=== PATIENT | male | born 1990 | race Caucasian/White ===

== ENCOUNTER 2022-03-25 10:27 | Emergency (ER) | payer SELFPAY ==
[~2022-03-25] VITALS: Ht 177 cm; Wt 115.0 kg
[2022-03-25 11:18] LABS: BILIRUBIN,URINE NEGATIVE (NEGATIVE); CLARITY,URINE CLEAR; COLOR,URINE YELLOW; GLUCOSE, URINE (UA) NEGATIVE (NEGATIVE); KETONES,URINE NEGATIVE (NEGATIVE); LEUKOCYTE ESTERASE ,URINE NEGATIVE (NEGATIVE); NITRITE,URINE NEGATIVE (NEGATIVE); PROTEIN,URINE NEGATIVE (NEGATIVE)
[2022-03-25 11:27] LABS: BACTERIA,URINE NEGATIVE /HPF
--- NOTE | 2022-03-25 12:06 | ED GU-Male ---
General Chief Complaint: - Reproductive Stated Complaint: GROIN PAIN Nursing Triage Note: ARRIVED VIA AMB TO ROOM 07 WITH RIGHT SIDED GROIN PAIN X1 WEEK. Source: patient Exam Limitations: no limitations (MEREDITH WASHINGTON APRN) History of Present Illness Date Seen by Provider: Mar 25, 2022 Time Seen by Provider: 11:45 Initial Comments Patient is a 31-year-old male who presents to the emergency department with onset of right groin pain approximately 1 week ago. Patient states the pain is intermittent and does sometimes radiate into his right testicle/scrotum. He states he also sometimes has urinary frequency but when he goes to the restroom he has difficulty initiating a stream. He states that other times he urinates without any issues at all. States it is sometimes painful to urinate but other times states he is able to urinate pain-free. Denies any penile discharge. Denies any bulge or swelling in the area of pain. States the pain is sometimes worse when he is lifting something. States he is pain-free at the time of my exam. He denies any swelling or redness to his scrotum. No abdominal pain. Has not been taking anything for the medicine other than smoking marijuana which she says does relieve the pain sometimes. Denies any history of similar symptoms. Timing/Duration: week Location: groin Radiation: scrotal Activities at Onset: none (MEREDITH WASHINGTON APRN) Allergies and Home Medications Allergies Coded Allergies: cefaclor (Verified Allergy, Unknown, 03/25/22) clarithromycin (Verified Allergy, Unknown, 03/25/22) Patient Home Medication List Home Medication List Reviewed: Yes (MEREDITH WASHINGTON APRN) Doxycycline Hyclate (Doxycycline Hyclate) 100 Mg Capsule, 100 MG PO BID Prescribed by: Meredith Washington on 03/25/22 1327 Ibuprofen (Ibuprofen) 800 Mg Tablet, 800 MG PO Q8H PRN for PAIN-MILD Prescribed by: Meredith Washington on 03/25/22 1327 Review of Systems Review of Systems Constitutional: no symptoms reported EENTM: no symptoms reported Respiratory: no symptoms reported Cardiovascular: no symptoms reported Gastrointestinal: see HPI Genitourinary: see HPI (MEREDITH WASHINGTON APRN) Past Dvlytpf-Syplrt-Swmqkn Hx Patient Social History Tobacco Use?: Yes Smoking Status: Current Everyday Smoker Substance use?: Yes Substance type: Marijuana Alcohol Use?: No (MEREDITH WASHINGTON APRN) Physical Exam Vital Signs Vital Signs - First Documented 03/25/22 10:40 Temp 36.3 Pulse 80 Resp 16 B/P (MAP) 141/96 (111) Pulse Ox 100 O2 Delivery Room Air (VALENCIA MACEDO MD) Vital Signs Capillary Refill : Less Than 3 Seconds (MEREDITH WASHINGTON APRN) Height, Weight, BMI Height: '" Weight: lbs. oz. kg; 36.00 BMI Method: General Appearance: WD/WN, no apparent distress HEENT: PERRL/EOMI, normal ENT inspection, TMs normal, pharynx normal Neck: non-tender, full range of motion, supple, normal inspection Cardiovascular: regular rate, rhythm Respiratory: chest non-tender, lungs clear, normal breath sounds, no respiratory distress, no accessory muscle use Gastrointestinal: normal bowel sounds, non tender, soft Male: normal genitalia; No inguinal tenderness, No testicular tenderness Back: normal inspection, no vertebral tenderness Extremities: normal range of motion, non-tender, normal inspection, no pedal edema, no calf tenderness Neurologic/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: 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, no motor/sensory deficits, alert, normal mood/affect, oriented x 3 Skin: normal color, warm/dry (MEREDITH WASHINGTON APRN) Progress/Results/Core Measures Suspected Sepsis SIRS Temperature: Pulse: 80 Respiratory Rate: 16 Blood Pressure 141 /96 Mean: 111 (MEREDITH WASHINGTON APRN) Results/Orders Lab Results Laboratory Tests Test 03/25/22 11:10 Range/Units Urine Color YELLOW Urine Clarity CLEAR Urine pH 6.0 5-9 Urine Specific Almond >=1.030 1.016-1.022 Urine Protein NEGATIVE NEGATIVE Urine Glucose (UA) NEGATIVE NEGATIVE Urine Ketones NEGATIVE NEGATIVE Urine Nitrite NEGATIVE NEGATIVE Urine Bilirubin NEGATIVE NEGATIVE Urine Urobilinogen 0.2 < = 1.0 MG/DL Urine Leukocyte Esterase NEGATIVE NEGATIVE Urine RBC (Auto) 1+ H NEGATIVE Urine RBC 2-5 H /HPF Urine WBC 2-5 /HPF Urine Squamous Epithelial Cells NONE /HPF Urine Crystals NONE /LPF Urine Bacteria NEGATIVE /HPF Urine Casts NONE /LPF Urine Mucus MODERATE H /LPF Urine Culture Indicated NO Urine Neisseria gonorrhoeae RNA Not Detected Not Detected (VALENCIA MACEDO MD) My Orders Orders - VALENCIA MACEDO MD Ua Culture If Indicated (03/25/22 10:50) (VALENCIA MACEDO MD) Vital Signs/I&O 03/25/22 03/25/22 10:40 13:52 Temp 36.3 Pulse 80 74 Resp 16 16 B/P (MAP) 141/96 (111) 116/68 Pulse Ox 100 98 O2 Delivery Room Air Room Air (VALENCIA MACEDO MD) Vital Signs/I&O Capillary Refill : Less Than 3 Seconds (MEREDITH WASHINGTON APRN) Blood Pressure Mean: 111 Progress Note : Progress Note Patient is nontoxic and well-hydrated on exam. No abdominal tenderness to palpation noted. Vital signs are reassuring. Exam of the inguinal region and scrotum are largely unremarkable. No erythema or swelling noted. Area is not markedly tender to palpation. Cremasteric reflex intact bilaterally. L aboratory evaluation is reassuring. Urinalysis reveals no evidence of infection. Ultrasound of the scrotum notable for likely right-sided epididymitis. This is a probable etiology of the patient's symptoms. Urine GC was obtained and patient was treated with 500 mg of Rocephin IM and was discharged home with a 10-day course of doxycycline. Recommended sexual abstinence until the course of doxycycline is completed. Patient states he is monogamous. States he has not had any penile discharge. Follow-up with PCP. Return precautions for urgent symptomology discussed. Patient verbalized understanding. (MEREDITH WASHINGTON APRN) Departure Impression Primary Impression: Right epididymitis Disposition: HOME, SELF-CARE Condition: Stable Departure-Patient Inst. Decision time for Depature: 13:25 (MEREDITH WASHINGTON APRN) Referrals: NO,LOCAL PHYSICIAN (PCP/Family) Primary Care Physician Patient Instructions: Epididymitis (DC) Scripts Ibuprofen (Ibuprofen) 800 Mg Tablet 800 MG PO Q8H PRN for PAIN-MILD for 7 Days, #21 TAB 0 Refills Prov: MEREDITH WASHINGTON APRN 03/25/22 Doxycycline Hyclate (Doxycycline Hyclate) 100 Mg Capsule 100 MG PO BID for 10 Days, #20 CAP 0 Refills Prov: MEREDITH WASHINGTON APRN 03/25/22 Work/School Note: Work Release Form Date Seen in the Emergency Department: Mar 25, 2022 Return to Work: Mar 27, 2022 ATTENDING PHYSICIAN NOTE: I was physically present as attending physician in the emergency department during the care of this patient, but I was not directly involved in the decision making or delivery of care for this patient. (VALENCIA MACEDO MD) MEREDITH WASHINGTON APRN Mar 25, 2022 12:06 VALENCIA MACEDO MD Mar 26, 2022 21:24
--- NOTE | 2022-03-25 12:44 | Diagnostic Imaging Report ---
PROCEDURE: US Scrotum w/ Duplex TECHNIQUE: Multiple realtime merida images were obtained of the scrotum in various projections bilaterally. Color Doppler images were also obtained. INDICATION: Right groin and testicle pain. COMPARISON: None. FINDINGS: The testicles are normal in size, shape and echogenicity. The right testis measures 4.6 x 2.7 x 3.1 cm. The left testis measures 4.4 x 2.6 x 3.2 cm. There is normal color flow Doppler signal of both testicles. No focal testicular mass is seen on either side. There is a heterogeneous appearance of the right epididymis with increased vascularity. The left epididymis is unremarkable. Small hydrocele is seen on the right. IMPRESSION: 1. Findings suggestive of right-sided epididymitis. No evidence of abscess. No orchitis is seen. 2. Unremarkable sonographic appearance of the testicles without focal mass or torsion. Dictated by: Dictated on workstation # [id number]
[2022-03-25] MEDS ORDERED: DOXY100C5 PO (13:27)
[2022-03-25] MEDS ORDERED: IBUP-1780 PO (13:27)
[2022-03-25] MEDS ORDERED: cefTRIAXone 500 MG in WATER (STERILE) FOR INJECTION 5 ML IV ONE (13:30)
[2022-03-25] MEDS ORDERED: LIDOCAINE 1% INJ 20 ML VIAL INJ ONE (13:45)
[2022-03-25] MEDS ORDERED: cefTRIAXone 500 MG/5 ML ML IM ONE (13:45)
[2022-03-25 13:52] VITALS: BP 116/68
== END 2022-03-25 13:52 | disposition home or self-care (01) ==
LOC: ER 10:32
DX: N45.1 Epididymitis (principal); F17.200 Nicotine dependence, unspecified, uncomplicated; Z88.1 Allergy status to other antibiotic agents; Z28.310 Unvaccinated for COVID-19
CPT/HCPCS: 36415; 76870; 81000; 87591; 99282

== ENCOUNTER 2022-03-30 13:16 | Emergency (ER) | payer SELFPAY ==
[~2022-03-30] VITALS: Ht 175 cm; Wt 114.0 kg
[~2022-03-30 13:16] MED LIST: DOXY100C5 PO; IBUP-1780 PO
[2022-03-30 14:38] LABS: BILIRUBIN,URINE NEGATIVE (NEGATIVE); CLARITY,URINE CLEAR; COLOR,URINE YELLOW; GLUCOSE, URINE (UA) NEGATIVE (NEGATIVE); KETONES,URINE NEGATIVE (NEGATIVE); LEUKOCYTE ESTERASE ,URINE NEGATIVE (NEGATIVE); NITRITE,URINE NEGATIVE (NEGATIVE); PROTEIN,URINE 1+ (NEGATIVE)
[2022-03-30 14:48] LABS: RBC,URINE 50-100 /HPF; WBC,URINE 0-2 /HPF
[2022-03-30 14:49] LABS: AMORPHOUS SEDIMENT,UR FEW AMOR URATES /LPF; BACTERIA,URINE NEGATIVE /HPF
--- NOTE | 2022-03-30 15:09 | Diagnostic Imaging Report ---
PROCEDURE: CT abdomen and pelvis without contrast. TECHNIQUE: Multiple contiguous axial images were obtained through the abdomen and pelvis without the use of intravenous contrast. Auto Exposure Controls were utilized during the CT exam to meet ALARA standards for radiation dose reduction. INDICATION: Right-sided abdominal and inguinal pain as well as difficulty urinating. COMPARISON: No prior studies are available for comparison. FINDINGS: The lung bases are clear. Liver and gallbladder are unremarkable. Pancreas and spleen are unremarkable. No adrenal mass is detected. No renal calculi are identified. There is a 3 mm calculus at the right UVJ, producing moderate hydroureteronephrosis. Aorta is normal in caliber. Bowel loops are nonobstructed. No free fluid or fluid collection is seen. Prostate is unremarkable. IMPRESSION: 3 mm right UVJ calculus, producing moderate hydroureteronephrosis. No other significant abnormality is detected. Dictated by: Dictated on workstation # [id number]
[2022-03-30] MEDS ORDERED: KETO10TA PO (15:28)
[2022-03-30] MEDS ORDERED: TMSL.4C PO (15:28)
--- NOTE | 2022-03-30 15:29 | ED Abdominal Pain ---
General Chief Complaint: - Reproductive Stated Complaint: TESTICULAR PAIN Nursing Triage Note: pt was seen here last wednesday for testicular pain, was lifting at work and has had extreme pain since it happened about 1000. Source of Information: Patient Exam Limitations: No Limitations History of Present Illness Date Seen by Provider: Mar 30, 2022 Time Seen by Provider: 13:40 Initial Comments Patient is a 31-year-old male who presents to the emergency department for evaluation of right inguinal and testicular pain. Patient states he also has some right-sided abdominal pain that he feels radiates from the testicles. Last week with similar symptoms. At that time a testicular ultrasound was notable for right epididymitis and patient was given an IM shot of Rocephin and placed on 7 days of doxycycline. He states he feels like he had complete resolution of the symptoms for a few days until the pain worsened yesterday slightly. He states today at work he was lifting heavy bags of seed when he suddenly had a worsening of the pain while lifting. He states that he also had initial onset of his symptoms last week after lifting. He states lifting heavy objects is part of his day-to-day work. 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 He denies seeing or feeling any bulge in his right inguinal area. He states bearing down does make the pain worse. Denies any blood in his urine but states he sometimes has difficulty emptying his bladder. Denies any fever. No trauma to his testicles or abdomen. Allergies and Home Medications Allergies Coded Allergies: cefaclor (Verified Allergy, Unknown, 03/25/22) clarithromycin (Verified Allergy, Unknown, 03/25/22) Patient Home Medication List Home Medication List Reviewed: Yes Doxycycline Hyclate (Doxycycline Hyclate) 100 Mg Capsule, 100 MG PO BID Prescribed by: Meredith Washington on 03/25/22 1327 Ibuprofen (Ibuprofen) 800 Mg Tablet, 800 MG PO Q8H PRN for PAIN-MILD Prescribed by: Meredith Washington on 03/25/22 1327 Ketorolac Tromethamine (Ketorolac Tromethamine) 10 Mg Tablet, 10 MG PO Q6H Prescribed by: Meredith Washignton on 03/30/22 1528 Tamsulosin HCl (Flomax) 0.4 Mg Cap, 0.4 MG PO DAILY Prescribed by: Meredith Washington on 03/30/22 1528 Review of Systems Review of Systems Constitutional: no symptoms reported EENTM: No Symptoms Reported Respiratory: No Symptoms Reported Cardiovascular: No Symptoms Reported Gastrointestinal: See HPI, Abdominal Pain Genitourinary: See HPI Musculoskeletal: no symptoms reported Skin: no symptoms reported Psychiatric/Neurological: No Symptoms Reported Past Pinoqow-Uymazd-Woxazl Hx Patient Social History Tobacco Use?: Yes Tobacco type used: Cigarettes Smoking Status: Current Someday Smoker Substance use?: Yes Substance type: Marijuana Alcohol Use?: Yes Alcohol type: Beer, Hard Liquor, Wine Past Medical History Surgery/Hospitalization HX: hx of hypertension, anxiety, bipolar depression Physical Exam Vital Signs Vital Signs - First Documented 03/30/22 13:39 Temp 36.6 Pulse 77 Resp 20 B/P (MAP) 139/86 (103) Pulse Ox 99 O2 Delivery Room Air Capillary Refill : Less Than 3 Seconds Height/Weight/BMI Height: '" Weight: lbs. oz. kg; 37.00 BMI Method: General Appearance: WD/WN, no apparent distress HEENT: PERRL/EOMI, normal ENT inspection, TMs normal, pharynx normal Neck: non-tender, full range of motion, supple, normal inspection Respiratory: chest non-tender, lungs clear, normal breath sounds, no respiratory distress, no accessory muscle use Cardiovascular: regular rate, rhythm Gastrointestinal: normal bowel sounds, non tender, soft Extremities: normal range of motion, non-tender, normal inspection Neurologic/Psychiatric: no motor/sensory deficits, alert, normal mood/affect, oriented x 3 Skin: normal color, warm/dry Progress/Results/Core Measures Results/Orders Lab Results Laboratory Tests Test 03/30/22 14:00 Range/Units Urine Color YELLOW Urine Clarity CLEAR Urine pH 6.0 5-9 Urine Specific [place] >=1.030 1.016-1.022 Urine Protein 1+ H NEGATIVE Urine Glucose (UA) NEGATIVE NEGATIVE Urine Ketones NEGATIVE NEGATIVE Urine Nitrite NEGATIVE NEGATIVE Urine Bilirubin NEGATIVE NEGATIVE Urine Urobilinogen 0.2 < = 1.0 MG/DL Urine Leukocyte Esterase NEGATIVE NEGATIVE Urine RBC (Auto) 3+ H NEGATIVE Urine RBC 50-100 H /HPF Urine WBC 0-2 /HPF Urine Crystals PRESENT H /LPF Urine Amorphous Sediment FEW BEN URATES H /LPF Urine Bacteria NEGATIVE /HPF Urine Casts NONE /LPF Urine Mucus NEGATIVE /LPF Urine Culture Indicated NO My Orders Orders - MEREDITH WASIHNGTON APRN Ct Abdomen/Pelvis Wo (03/30/22 14:23) Ua Culture If Indicated (03/30/22 14:23) Ketorolac Injection (Toradol Injection) (03/30/22 15:30) Vital Signs/I&O 03/30/22 03/30/22 13:39 15:45 Temp 36.6 Pulse 77 Resp 20 B/P (MAP) 139/86 (103) 146/92 Pulse Ox 99 O2 Delivery Room Air Blood Pressure Mean: 103 Progress Progress Note : Progress Note Patient is nontoxic and well-hydrated on exam. There is some tenderness to palpation in the left inguinal region as well as the suprapubic and right upper quadrant regions of the abdomen. Vital signs are reassuring. There is no definitive inguinal hernia palpated on exam with or without Valsalva. HPI is suspicious for hernia with worsening with lifting. Urinalysis notable for hematuria but is otherwise largely unremarkable. CT of the abdomen and pelvis notable for a right UVJ calculi with moderate hydronephrosis. This would explain some patient's etiology although the specific worsening with lifting remains atypical for ureteral calculi. Either way patient will be treated with analgesia and prescribed Flomax. Discussed importance of drinking large amounts of water to promote passage. Follow-up with PCP. Return precautions for urgent symptomology discussed. Patient verbalized understanding. Departure Impression Primary Impression: Right ureteral calculus Disposition: 01 HOME, SELF-CARE Condition: Stable Departure-Patient Inst. Decision time for Depature: 15:20 Referrals: NO,LOCAL PHYSICIAN (PCP/Family) Primary Care Physician Patient Instructions: Kidney Stones (DC) Scripts Tamsulosin HCl (Flomax) 0.4 Mg Cap 0.4 MG PO DAILY for 7 Days, #7 CAP 0 Refills Prov: MEREDITH WASHINGTON APRN 03/30/22 Ketorolac Tromethamine (Ketorolac Tromethamine) 10 Mg Tablet 10 MG PO Q6H for 5 Days, #20 TAB 0 Refills Prov: MEREDITH WASHINGTON APRN 03/30/22 Work/School Note: Work Release Form Date Seen in the Emergency Department: Mar 30, 2022 Return to Work: Apr 01, 2022 MEREDITH WASHINGTON APRN Mar 30, 2022 15:29
[2022-03-30] MEDS ORDERED: KETOROLAC 30 MG/ML VIAL IM ONE (15:30)
[2022-03-30 15:45] VITALS: BP 146/92
== END 2022-03-30 15:45 | disposition home or self-care (01) ==
LOC: EDUNIT# 13:16 → ER 13:17
DX: N13.2 Hydronephrosis with renal and ureteral calculous obstruction (principal); N45.1 Epididymitis; F17.210 Nicotine dependence, cigarettes, uncomplicated; Z28.310 Unvaccinated for COVID-19
CPT/HCPCS: 74176; 81000